=== PATIENT | male | born 1980 | race Caucasian/White ===

== ENCOUNTER 2016-08-04 07:23 | Inpatient (IN) | payer MEDICAID ==
[~2016-08-04] VITALS: Ht 167.6 cm; Wt 90.7 kg
[2016-08-04] MEDS ORDERED: LACTATED RINGERS 1,000 ML IV SCH (08:15)
[2016-08-04 08:30] LABS: BASOPHILS % 0.7 % (0.0-2.0); EOSINOPHILS % 3.4 % (0.0-5.0); HEMATOCRIT. 43.8 % (42.0-52.0); HEMOGLOBIN. 15.2 g/dL (14.0-18.0); LYMPHOCYTES % 30.2 % (20.0-50.0); MEAN CORPUSCULAR HEMOGLOBIN 30.3 pg (28.0-32.0); MEAN PLATELET VOLUME 8.2 fl (7.4-10.4); MONOCYTES % 6.7 % (2.0-8.0); PLATELET 251 x1000/uL (130-400); RED BLOOD CELL COUNT 5.03 mill/uL (4.7-6.1); RED CELL DISTRIBUTION WIDTH 13.8 % (11.6-14.6)
[2016-08-04] MEDS ORDERED: BUPIVACAINE/EPINEPH/PF 0.25%/0.0005 10ML ONE (09:32)
[2016-08-04] MEDS ORDERED: NORMAL SALINE 0.9% 10 ML SYR ONE (09:32)
[2016-08-04] MEDS ORDERED: BACITRACIN 50,000 UNITS/VIAL ONE (09:32)
[2016-08-04] MEDS ORDERED: LIDOCAINE HCL/EPINEPHRINE 1%-EPI 1:100,000 20 ML VIAL ONE (09:50)
[2016-08-04] MEDS ORDERED: ROPIVACAINE HCL 10MG/ML 20 ML VIAL EPI ONE (09:50)
[2016-08-04] MEDS ORDERED: DEXAMETHASONE 4MG/ML 1ML VIAL ONE (10:26)
[2016-08-04] MEDS ORDERED: CEFAZOLIN SODIUM 1000MG/VIAL ONE (10:26)
[2016-08-04] MEDS ORDERED: LABETALOL HCL 20MG/4ML CARPUJECT IV PRN (11:15)
[2016-08-04] MEDS ORDERED: MEPERIDINE HCL/PF 25MG/ML CPJ IV PRN (11:15)
[2016-08-04] MEDS ORDERED: ONDANSETRON HCL 4MG/2ML VIAL IV PRN ×2 (11:15→13:45)
[2016-08-04] MEDS ORDERED: SKIN ADHESIVE 0.7 GM EA TOP ONE (12:27)
[2016-08-04] MEDS ORDERED: ZOLPIDEM TARTRATE 5MG TABLET PO PRN (13:45)
[2016-08-04] MEDS ORDERED: HYDROCODONE/ACETAMINOPHEN 10/325MG TABLET PO PRN ×2 (13:45)
[2016-08-04] MEDS ORDERED: ACETAMINOPHEN 325MG TABLET PO PRN (13:45)
[2016-08-04] MEDS ORDERED: MORPHINE SULFATE 4 MG/ML CPJ (NOT FOR IM USE) IV PRN ×2 (13:45)
[2016-08-04] MEDS ORDERED: DIPHENHYDRAMINE INJ IV PRN (14:00)
[2016-08-04] MEDS ORDERED: HYDROMORPHONE PCA 10MG/50ML IV PRN (14:00)
[2016-08-04] MEDS ORDERED: ONDANSETRON INJ IV PRN (14:00)
[2016-08-04] MEDS ORDERED: NALOXONE INJ IV PRN (14:00)
[2016-08-04] MEDS: HYDROMORPHONE HCL/PF 2MG/ML CPJ IV PRN ×2 (15:45→16:17)
[2016-08-05] MEDS: CEFAZOLIN 2,000 MG in DEXT 5% WATER 100 ML IV SCH ×2 (00:05→06:01)
[2016-08-05] MEDS ORDERED: CELECOXIB 200MG CAPSULE PO SCH (09:00)
[2016-08-05 12:00] VITALS: BP 103/63
== END 2016-08-05 12:00 | disposition home or self-care (01) | DRG 315 ==
LOC: OR 07:23 → 6EST 21:36
PROVIDERS: ADMIT Orthopaedic Surgery; ATTEND Orthopaedic Surgery
PROC: 0RBL0ZZ Excision of Right Elbow Joint, Open Approach (ICD-10-PCS; 2016-08-04)
PROC: 0RRL0JZ Replacement of Right Elbow Joint with Synthetic Substitute, Open Approach (ICD-10-PCS; principal; 2016-08-04 10:00)
DX: S52.121A Displaced fracture of head of right radius, initial encounter for closed fracture (principal); S42.451A Displaced fracture of lateral condyle of right humerus, initial encounter for closed fracture; S42.131A Displaced fracture of coracoid process, right shoulder, initial encounter for closed fracture; M24.621 Ankylosis, right elbow; X58.XXXA Exposure to other specified factors, initial encounter; Y93.89 Activity, other specified; Y92.89 Other specified places as the place of occurrence of the external cause; Y99.8 Other external cause status
CPT/HCPCS: 36415; 73070; 85025; 88305; 88311; 93005; A4216; J0171; J0690; J1100; J1170; J2795; J3490; J7040; J7050; J7060; J7120; L9000